=== PATIENT | male | born 1950 | race Caucasian/White ===

== ENCOUNTER 2020-04-09 15:17 | Emergency (ER) | payer MEDICARE, SELFPAY ==
[2020-04-09 15:15] VITALS: BP 118/86; PULSE 77; RESP 16; TEMP 36.6; O2SAT 99
--- NOTE | 2020-04-09 15:36 | ED.GENADULT ---
HPI - General Adult General Chief complaint: Epistaxis Stated complaint: nosebleed Source: patient Mode of arrival: EMS Limitations: no limitations History of Present Illness HPI narrative: Patient is a 69-year-old male who presents emergency department for evaluation of epistaxis from the right nare patient notes that the bleeding occurred yesterday was able to stop it with pressure but today the bleeding increased and is not been unable to stop the bleeding. Patient denies injury trauma URI symptoms or other complaints and on arrival bleeding has resolved and is resting comfortably in the room in no distress Related Data Home Medications Medication Instructions Recorded Confirmed finasteride mg 04/09/20 Allergies Allergy/AdvReac Type Severity Reaction Status Date / Time No Known Allergies Allergy Mild Verified 04/09/20 15:22 Review of Systems Review of Systems: All systems reviewed & are unremarkable except as noted in HPI and below PMFSH Past Medical History Medical History (Updated 04/09/20 @ 15:43 by Jd Black PA-C) BPH (benign prostatic hyperplasia) Surgical History Surgical History (Updated 04/09/20 @ 15:43 by Jd Black PA-C) History of colon resection Social History Social History (Updated 04/09/20 @ 15:43 by Jd Black PA-C) Smoking status: Never smoker Tobacco type: cigars Exam Narrative: Exam Narrative: GENERAL: Well-appearing, well-nourished, and in no acute distress. HEAD: Normocephalic, atraumatic. EYES: PERRLA and EOMI. ENT: Nares clear, no rhinorrhea or epistaxis. Anterior vessel that is exposed after rubbing with a Q-tip began to bleeding is identified as the source and was cauterized with silver nitrate sticks. Mucous membranes moist. Oropharynx without tonsillar hypertrophy exudate or other lesions. CHEST: Clear to auscultation. No respiratory distress. No wheezes rales or rhonchi HEART: Regular rate and rhythm. No murmur heard. EXTREMITIES: Normal range of motion. No edema. SKIN: Warm, dry, no rash. NEURO: No focal deficits. Alert and oriented x3. Cranial nerves II through XII grossly intact PSYCH: Normal mood and affect. Course Course Emergency Course: Patient in the room in no distress aware of case findings treatment plan and diagnosis Vital Signs Vital signs: Vital Signs Temperature 98 F 04/09/20 15:15 Pulse Rate 77 04/09/20 15:15 Respiratory Rate 16 04/09/20 15:15 Blood Pressure 118/86 04/09/20 15:15 Pulse Oximetry 99 04/09/20 15:15 Temperature 98 F 04/09/20 15:15 Pulse Rate 77 04/09/20 15:15 Respiratory Rate 16 04/09/20 15:15 Blood Pressure 118/86 04/09/20 15:15 Pulse Oximetry 99 04/09/20 15:15 Procedures Epistaxis Control right: Epistaxis Control Date: 04/09/20 Epistaxis Control Time: 15:38 Time Out Performed: Yes Direct Inspection: yes Cautery Used: silver nitrate Medical Decision Making MDM Narrative Medical decision making narrative: Patient in the room in no distress hemostasis achieved felt appropriate for outpatient reevaluation provided with reasons to return Vital Signs Vital Signs: Vital Signs Temperature 98 F 04/09/20 15:15 Pulse Rate 77 04/09/20 15:15 Respiratory Rate 16 04/09/20 15:15 Blood Pressure 118/86 04/09/20 15:15 Pulse Oximetry 99 04/09/20 15:15 Temperature 98 F 04/09/20 15:15 Pulse Rate 77 04/09/20 15:15 Respiratory Rate 16 04/09/20 15:15 Blood Pressure 118/86 04/09/20 15:15 Pulse Oximetry 99 04/09/20 15:15 Discharge Plan Discharge Clinical Impression: Epistaxis Patient Disposition: Home, Self-Care Condition: Stable Instructions: Antibiotic Form, Nosebleed (ED) Additional Instructions: Follow-up with ENT in the next 5 days for reevaluation. Go to ER for shortness of breath, difficulty breathing, chest pain, fever/chills, weakness, nauseau/vomitting, etc. or any other conc
[2020-04-09 16:26] VITALS: BP 115/90; PULSE 75; RESP 16; TEMP 36.5; O2SAT 96
== END 2020-04-09 16:27 | disposition home or self-care (01) ==
PROVIDERS: Emergency Provider Emergency Medicine; PCP Family Medicine
DX: R04.0 Epistaxis (principal); N40.0 Benign prostatic hyperplasia without lower urinary tract symptoms; Z90.49 Acquired absence of other specified parts of digestive tract
CPT/HCPCS: 30901; 99282

== ENCOUNTER 2021-08-02 06:44 | Emergency (ER) | payer MEDICARE, SELFPAY ==
[2021-08-02] VITALS (13 sets, daily range): BP systolic 133–142; BP diastolic 81–87; PULSE 48–58; RESP 12–29; TEMP 36.7; O2SAT 90–100
--- NOTE | ~2021-08-02 | CT_ITS ---
EXAMINATION: CTA brain carotid EXAM DATE: 08/02/2021 08:56 INDICATION: Dizziness and nausea. TECHNIQUE: Noncontrast head CT. Spiral CTA of the carotid arteries was performed with intravenous i njection 100 cc of Omnipaque 350. Axial, coronal, sagittal reformatted images reviewed. Additional r eformatted images created on dedicated 3-D workstation. NASCET comparable standard used to assess th e degree of arterial stenosis. Spiral CT angiogram cerebral arteries performed with the same intrave nous injection of contrast. Source images of the brain CTA transferred to dedicated workstation for 3 -D rotational image creation. Coronal, sagittal maximum intensity pixel images also reviewed. The d ose-length product (DLP) for this examination was 2925.02 mGy-cm. The exposure was tailored accordi ng to patient size, and iterative reconstruction (ASIR) was used as additional dose reduction techniq ue. There is no prior study for comparison. FINDINGS: There is bilateral extracranial carotid tortuosity. There is no carotid bulb or siphon sten osis. There is no carotid or vertebral basilar arterial dissection or fibromuscular dysplasia. There are no cerebral artery aneurysms. There is symmetric cerebral artery arborization. There are bilater al posterior communicating artery dominant posterior cerebral arteries. The sagittal, transverse and sigmoid sinuses enhance normally, no venous sinus thrombosis. Internal cerebral veins also enhance no rmally. There is no acute intraparenchymal hemorrhage. No evidence of intraparenchymal brain mass lesion. N o evidence of acute infarction. There is no mass effect or midline shift. There is no obstructive h ydrocephalus suspected. There are no extra-axial collections. Mild microangiopathy and cerebral atr ophy. Incidental Findings: Cervical spondylosis. IMPRESSION: 1. No acute carotid or intracranial findings. 2. Mild microangiopathy and cerebral atrophy. 3. Bilateral carotid 0% stenosis. Reviewed, dictated and finalized at location A.
--- NOTE | 2021-08-02 07:02 | PC.NURSE ---
Pt arrived in ED c EMS, c/o dizziness upon awakening this am, EMS crew reports pt began to get nauseous en route. given 4 mg zofran ivp. pt reports dizziness improved with eyes closed, but remains uncomfortable. no prior hx of vertigo, but pt has had 1 episode of similar in past, d/t dehydration. at bedside. 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
--- NOTE | 2021-08-02 07:29 | ECG_ITS ---
Measurements Intervals [place] Rate: 50 P: 19 MD: 190 QRS: -38 QRSD: 146 T: -28 QT: 446 QTc: 408 Interpretive Statements SINUS BRADYCARDIA LEFT AXIS DEVIATION RIGHT BUNDLE BRANCH BLOCK BASELINE ARTIFACT- II, III, AVR, AVL, AVF, V1, V3-V6 ABNORMAL ECG Electronically Signed On 08-02-2021 7:48:47 CDT by Navin Sauer D.O.
[2021-08-02] MEDS: MECLIZINE HCL 25 MG TABLET PO (07:51)
[2021-08-02 07:54] LABS: Basophils Percent Auto 0.8 % (0.2-1.2); Eosinophils Absolute Auto 0.1 K/mm3 (0-0.3); Eosinophils Percent Auto 1.6 % (0-4.4); Hematocrit 39.7 % (42.0-52.0); Hemoglobin 13.8 g/dL (14.0-18.0); Immature Granulocyte Absolute 0.05 K/mm3 (0.00-0.031); Immature Granulocyte Percent A 1.3 % (0-0.5); Lymphocytes Absolute Auto 0.61 K/mm3 (0.9-3.2); Lymphocytes Percent Auto 15.9 % (18.3-44.2); Mean Corpuscular HGB Conc 34.8 g/dl (32-36); Mean Corpuscular Hemoglobin 31.8 pg (26-34); Mean Corpuscular Volume 91.5 fl (80-100); Mean Platelet Volume 8.4 fl (7.4-10.4); Monocytes Absolute Auto 0.3 K/mm3 (0.1-0.6); Monocytes Percent Auto 8.9 % (2.6-8.5); Neutrophils Absolute Auto 2.7 K/mm3 (1.3-6.7); Neutrophils Percent Auto 71.5 % (45.5-73.1); Platelet Count Result 167 k/mm3 (150-375); Red Blood Count 4.34 M/mm3 (4.6-6.20); Red Cell Distribution Width 13.2 % (11.5-14.5); White Blood Count 3.8 K/mm3 (4.5-10.0)
[2021-08-02] MEDS: SODIUM CHLORIDE 0.9% IV 1,000 ML 999 ML (07:57)
--- NOTE | 2021-08-02 08:02 | ED.GENADULT ---
HPI - General Adult General Chief complaint: Dizziness Stated complaint: DIZZY/NAUSEA Time Seen by Provider: 08/02/21 07:03 Source: patient History of Present Illness HPI narrative: Patient is a 70 y/o male complaining of severe dizziness when he woke up at 5:00 AM today. He felt fine when he went to sleep around midnight last night. That was his last known well. He describes his dizziness as room spinning sensation. Opening eyes seems aggravate his symptoms. He also has some nausea and vomiting. He passed out. He feels weak all over. Related Data Home Medications Medication Instructions Recorded Confirmed finasteride mg 04/09/20 Allergies Allergy/AdvReac Type Severity Reaction Status Date / Time No Known Allergies Allergy Mild Verified 08/02/21 07:02 Review of Systems Constitutional: Constitutional: Denies chills, Denies fever(s), Denies headache(s) and Denies weakness Eyes: Eyes: Denies blurry vision ENT: Denies headache(s) and Denies neck pain Cardiovascular: Cardiovascular: Denies chest pain and Denies dyspnea Respiratory: Respiratory: Denies cough and Denies dyspnea Gastrointestinal: Gastrointestinal: Denies abdominal pain, Denies diarrhea, Denies nausea and Denies vomiting Genitourinary: Genitourinary: Denies hematuria and Denies dysuria Musculoskeletal: Musculoskeletal: Denies back pain and Denies neck pain Neurologic: Reports dizziness, Reports syncope, Denies headache(s) and Reports weakness PMFSH Past Medical History Medical History BPH (benign prostatic hyperplasia) Surgical History Surgical History History of colon resection Social History Social History Smoking status: Never smoker Tobacco type: cigars Exam Const: General: no acute distress and well developed Orientation/consciousness: oriented to person, oriented to place, oriented to time and patient oriented x3 HENMT: Head: normocephalic Ears: external ears normal General nose exam: Normal external nose present Eyes: General: appearance normal, both eyes and all related structures Conjunctivae: conjunctivae normal Neck: Neck: normal visual inspection and full ROM Chest: Chest palpation & inspection: normal inspection of the chest and no tenderness Resp: Effort & Inspection: normal respiratory effort Auscultation: clear to auscultation bilaterally Cardio: Rate: bradycardic Rhythm: regular rhythm GI: GI Palp: No abdominal tenderness and Yes Soft to palpation Skin: General skin exam: normal color and turgor normal Neuro: General: oriented to person, oriented to place, oriented to time and patient oriented x3 Cranial nerves: Yes CN's II-XII intact bilaterally Cognition (Neuro): normal cognition Speech: normal speech Motor exam (neuro): 5/5 motor strength present throughout Sensory Exam: normal sensation Coordination: [id number] test normal and [id number] test normal Extrem: General: normal to inspection, full ROM and no pedal edema Psych: Appearance: grossly normal Mental Status: mental status grossly normal Affect: normal affect Course Reevaluation(s) Reevaluation #1: Rechecked. Patient feels better. Offered patient admission for observation and further workup, but he declined. He agrees to return if his symptoms get worse. Date: 08/02/21 Time: 11:00 Vital Signs Vital signs: Vital Signs Temperature 36.7 C 08/02/21 06:46 Pulse Rate 56 L 08/02/21 06:46 Respiratory Rate 18 08/02/21 06:46 Blood Pressure 135/82 08/02/21 06:46 Pulse Oximetry 99 08/02/21 06:46 Temperature 36.7 C 08/02/21 06:46 Pulse Rate 53 L 08/02/21 08:15 Respiratory Rate 15 08/02/21 08:15 Blood Pressure 133/86 08/02/21 08:02 Pulse Oximetry 96 08/02/21 08:15 Medical Decision Making Vital Signs Vital Signs: Vital Signs Temperature 36.
[2021-08-02 08:07] LABS: Alanine Aminotransferase 16 U/L (4-50); Alkaline Phosphatase 76 U/L (38-126); Anion Gap 9 mmol/L (8-16); Aspartate Amino Transferase 26 U/L (17-59); Blood Urea Nitrogen 13 mg/dL (9-20); Calcium 8.9 mg/dL (8.4-10.2); Carbon Dioxide 25 mmol/L (22-30); Chloride 107 mmol/L (98-107); Estimated CRCL calculation 63 ml/min; Estimated Glomerular Filt Rate > 60; Glucose 130 mg/dL (65-110); Potassium 3.7 mmol/L (3.4-5.0); Sodium 141 mmol/L (137-145)
[2021-08-02] MEDS: ONDANSETRON INJ 4 MG/2 ML VIAL IV PUSH (08:59)
--- NOTE | 2021-08-02 09:00 | PC.NURSE ---
pt states is feeling some better. did notice that movement made dizziness worsen.
== END 2021-08-02 11:20 | disposition home or self-care (01) ==
PROVIDERS: Emergency Provider Emergency Medicine; PCP Family Medicine
DX: R42 Dizziness and giddiness (principal); N40.0 Benign prostatic hyperplasia without lower urinary tract symptoms; R00.1 Bradycardia, unspecified; I45.10 Unspecified right bundle-branch block
CPT/HCPCS: 36415; 70496; 70498; 80053; 85025; 93005; 96361; 96374; 99284; A9270; J2405; J7030; Q9967

== ENCOUNTER → 2023-03-13 08:11 | Outpatient (CLI) | payer MEDICARE, SELFPAY ==
--- NOTE | ~2023-03-13 | MR_ITS ---
EXAMINATION: MR knee LT wo con DATE: 03/13/2023 08:46 INDICATION: Internal derangement of the left knee TECHNIQUE: Magnetic resonance imaging (MRI) of the left knee was performed without intravenous contra st. Sequences included coronal PD-weighted FSE, coronal PD-weighted FS FSE, sagittal T2-weighted FSE , sagittal PD-weighted FS FSE and axial PD weighted fat saturated FSE. COMPARISON: None. FINDINGS: Medial compartment: Tear of the medial meniscus likely complex with a longitudinal horizontal tear extending from the ant erior to the posterior horn and likely secondary tear planes along the body and posterior horn. Parti al-thickness chondral ulceration and fissuring without degenerative subchondral changes along the ant erior to central weightbearing medial femoral condyle. Minimal chondral surface irregularity along th e medial tibial plateau. There is mild subarticular edema along the anteromedial rim which could be r elated to overlying chondromalacia versus mild stress reaction related to altered weight distribution resulting from the meniscal tear. Lateral compartment: There is mild lateral extrusion of the lateral meniscal body. Small longitudinal horizontal tear plan e extending to the cephalad articular surface along the inner third of the anterior body of the later al meniscus. Mild partial-thickness cartilage loss with some chondral surface regularity along the an terior weightbearing lateral femoral condyle and lateral tibial plateau. Patellofemoral compartment: Deep chondral fissure extending horizontally across the midportion of the lateral patellar facet and apical ridge but without degenerative subchondral changes. Shallow chondral ulceration along the medi al trochlea underlying a medial plical band which passes obliquely across the articular surface of th e medial trochlea. Ligaments and tendons: Anterior and posterior cruciate ligaments are normal. The medial collateral ligament and fibular stalin ateral ligament complex are normal. Mild distal quadriceps tendinopathy without tear. Patellar tendon is normal. The visualized medial and lateral hamstring tendons as well as the iliotibial band are no rmal. Fluid: Small left knee joint effusion. No loose osteochondral bodies identified. Osseous/other: Bone alignment is normal. No fracture or pathologic marrow replacing process. IMPRESSION: 1. Complex medial meniscal tear extending from anterior to the posterior horn. 2. Small longitudinal horizontal tear at the anterior body of the lateral meniscus. 3. Mild tricompartmental osteoarthritis. Reviewed, dictated and finalized at location A. IMPRESSION: 1. Complex medial meniscal tear extending from anterior to the posterior horn. 2. Small longitudinal horizontal tear at the anterior body of the lateral menis cus. 3. Mild tricompartmental osteoarthritis.
== END ==
PROVIDERS: PCP Family Medicine; Visit Provider Orthopaedic Surgery
DX: M23.92 Unspecified internal derangement of left knee (principal)
CPT/HCPCS: 73721